=== PATIENT | female | born 1975 | race Caucasian/White ===

== ENCOUNTER 2022-01-04 10:39 | Emergency (ER) | payer BC ==
[2022-01-04 10:48] VITALS: BP 152/92; PULSE 91; RESP 18; TEMP 97.4; BMI 27.7
[2022-01-04] MEDS ORDERED: SODIUM CHLORIDE 0.9% 500 ML INFUS.BAG IV ONE (12:30)
[2022-01-04] MEDS ORDERED: ACETAMINOPHEN 1000 MG/100 ML BAG IVPB ONE (12:32)
[2022-01-04] MEDS ORDERED: ONDANSETRON 4 MG/2 ML VIAL IVPUSH ONE (12:34)
[2022-01-04] MEDS ORDERED: ACETAMINOPHEN INJECTION 100 ML IVPB ONE (13:11)
[2022-01-04] MEDS ORDERED: ONDANSETRON 4 MG/2 ML VIAL ONE (13:11)
[2022-01-04 13:36] LABS: BASO % 0.7 % (0-2.0); EOS % 2.7 % (0-4.5); HEMATOCRIT 43.5 % (32.4-45.2); HEMOGLOBIN 14.9 GM/dL (10.7-15.3); LYMPH % 19.3 % (8-40); MCH 33.7 pg (25.7-33.7); MCHC 34.2 g/dl (32.0-36.0); MEAN CELL VOLUME 98.5 fl (80-96); MEAN PLT VOLUME 8.2 fl (7.5-11.1); MONO % 6.7 % (3.8-10.2); NEUT % 70.6 % (42.8-82.8); PLATELET COUNT 265 10^3/uL (134-434); RBC 4.42 M/mm3 (3.60-5.2); RDW 12.8 % (11.6-15.6); WHITE BLOOD COUNT 8.4 K/mm3 (4.0-10.0)
[2022-01-04 13:47] LABS: INR 0.97 (0.83-1.09); PROTHROMBIN TIME (PATIENT) 11.1 SEC (9.7-13.0)
[2022-01-04 13:48] LABS: PH,URINE 7.5 (5.0-8.0); URINE APPEARANCE CLEAR; URINE BILIRUBIN NEGATIVE (NEGATIVE); URINE COLOR YELLOW; URINE GLUCOSE (UA) NEGATIVE (NEGATIVE); URINE KETONE NEGATIVE (NEGATIVE); URINE LEUK ESTERASE NEGATIVE (NEGATIVE); URINE NITRITE NEGATIVE (NEGATIVE); URINE PROTEIN NEGATIVE (NEGATIVE); URINE UROBILINOGEN 0.2 mg/dL (0.2-1.0)
[2022-01-04 13:50] LABS: ACTIVATED PTT 51.2 SECONDS (25.2-36.5)
[2022-01-04 13:54] LABS: CALCIUM 8.3 mg/dL (8.5-10.1)
[2022-01-04 13:55] LABS: ALBUMIN 3.6 g/dl (3.4-5.0); BLOOD UREA NITROGEN 9.2 mg/dL (7-18)
[2022-01-04 13:58] LABS: CREATININE 0.6 mg/dL (0.55-1.3)
[2022-01-04 14:00] LABS: BILIRUBIN,TOTAL 0.3 mg/dL (0.2-1)
[2022-01-04 15:27] LABS: MAGNESIUM 1.9 mg/dL (1.8-2.4)
[2022-01-04 15:30] LABS: PHOSPHOROUS 2.5 mg/dL (2.5-4.9)
[2022-01-04] MEDS ORDERED: KETOROLAC TROMETHAMINE 15 MG/ML VIAL IVPUSH ONE (16:13)
[2022-01-04] MEDS ORDERED: KETOROLAC TROMETHAMINE 15 MG/ML VIAL ONE (16:57)
== END 2022-01-04 18:42 | disposition home or self-care (01) ==
LOC: JER 10:39
PROC: 3E033NZ Introduction of Analgesics, Hypnotics, Sedatives into Peripheral Vein, Percutaneous Approach (ICD-10-PCS; principal; 2022-01-04)
PROC: 3E033GC Introduction of Other Therapeutic Substance into Peripheral Vein, Percutaneous Approach (ICD-10-PCS; 2022-01-04)
PROC: 3E0333Z Introduction of Anti-inflammatory into Peripheral Vein, Percutaneous Approach (ICD-10-PCS; 2022-01-04)
DX: R10.31 Right lower quadrant pain (principal)
CPT/HCPCS: 36415; 74177-TC; 76830-TC; 80053; 81003; 83605; 83735; 84100; 84703; 85025; 85610; 85730; 86850; 86870; 86900; 86901; 86902; 87086; 93005; 93010; 99285-25